=== PATIENT | male | born 2000 ===

== ENCOUNTER 2021-10-30 09:18 | Emergency (ER) | payer OTHER, SELFPAY ==
[2021-10-30 09:33] VITALS: BP 107/76; PULSE 93; RESP 16; TEMP 36.6; O2SAT 100
--- NOTE | 2021-10-30 09:37 | ED.EXTPRO ---
HPI - Extremity Problem General Chief complaint: Extremity Problem,Nontraumatic Stated complaint: right foot big toe injury Time Seen by Provider: 10/30/21 09:37 Source: patient, RN notes reviewed and old records reviewed Mode of arrival: ambulatory Limitations: no limitations History of Present Illness HPI Narrative: 21-year-old male presents to the [facility] with right great toe pain, redness and swelling. Patient states it was uncomfortable starting about 2 weeks ago. 2 days ago it became more swollen, red. Yesterday it started draining yellow-green pus. Redness is not circumferential. No fluctuance noted. Patient denies any past medical history. Sensation intact, capillary refill under 2 seconds, positive pedal pulse Related Data Allergies Allergy/AdvReac Type Severity Reaction Status Date / Time amoxicillin Allergy Nausea and Verified 10/30/21 09:28 Vomiting cefdinir [From Omnicef] Allergy Nausea and Verified 10/30/21 09:28 Vomiting Review of Systems Review of Systems: All systems reviewed & are unremarkable except as noted in HPI and below Constitutional: Constitutional: Reports no additional constitutional complaints, Denies chills and Denies fever(s) Eyes: Eyes: Reports no additional eye complaints ENT: Reports system reviewed and no additional complaints, except as documented Cardiovascular: Cardiovascular: Reports no additional cardiovascular complaints Respiratory: Respiratory: Reports no additional respiratory complaints Gastrointestinal: Gastrointestinal: Reports no additional gastrointestinal complaints Musculoskeletal: Musculoskeletal: Reports no additional musculoskeletal complaints Integumentary/Breasts: Skin/Breast: Reports as per HPI Neurologic: Reports system reviewed and no additional complaints, except as documented Psychiatric: Psychiatric: Reports no additional psychiatric complaints Allergic/Immunologic: Allergic/Immunologic: Reports no additional allergic/immunologic complaints [facility] Past Medical History Medical History (Updated 10/30/21 @ 13:27 by Lindsey Arguello APRN) Patient denies medical problems Surgical History Surgical History (Updated 10/30/21 @ 09:46 by Lindsey Arguello APRN) History of orthopedic surgery rt ankle Social History Social History (Updated 10/30/21 @ 13:27 by Lindsey Arguello APRN) Gender identity (if verbalized by the patient): Male Comments At the time of my signature, I reviewed and agree with the nursing past medical, surgical, social, and family history. There is no relevant family history pertinent to the patient complaint. Exam Const: General: healthy appearing, no acute distress and alert Nutritional Appearance: well nourished Orientation/consciousness: patient oriented x3 Limitations: no limitations HENMT: Head: normal to inspection Ears: external ears normal Eyes: General: appearance normal, both eyes and all related structures Pupils: Equal, round and reactive pupils present Neck: Neck: normal visual inspection, no lymphadenopathy and no meningeal signs Chest: Chest palpation & inspection: normal inspection of the chest Resp: Effort & Inspection: normal respiratory effort and no use of accessory muscles Auscultation: clear to auscultation bilaterally, no crackles, no rales, no rhonchi and no wheezes Cardio: Rate: regular rate Rhythm: regular rhythm Back/Spine/Pelvis: Cervical Spine: normal cervical lordosis Thoracic/Lumbar Spine: thoracic and lumbar spine normal to inspection Skin: General skin exam: normal color Rashes: no rashes Wounds: no wounds Other: Right great toe nail surrounding redness, indurated. No fluctuance. No drainage noted at this time. Dried blood noted on the nail. Area soaked for 15 minutes in tetra care and warm water. Toe again reevaluated. Neuro: General: patient oriented x3, moves all extremities, no meningeal signs and no focal motor deficits Cranial nerves: Yes Equal, round
--- NOTE | 2021-10-30 10:28 | PC.NURSE ---
1001 Recheck by provider-foot soak discontinued.
== END 2021-10-30 10:11 | disposition home or self-care (01) ==
PROVIDERS: Emergency Provider Nurse Practitioner
DX: L03.031 Cellulitis of right toe (principal)
CPT/HCPCS: 99213; G0463